=== PATIENT | female | born 1935 | race Caucasian/White ===

== ENCOUNTER → 2018-04-25 14:48 | Outpatient (CLI) | payer MEDICARE, SELFPAY ==
--- NOTE | 2018-04-25 14:55 | BI_ITS ---
MAMMOGRAPHY - BILATERAL SCREENING 3-D BEAL SYNTHESIS REASON FOR EXAM: Female, 83 years old. Bilateral Screening 3-D tomosynthesis PERTINENT HISTORY: No significant family history. TECHNIQUE: 2-D mammograms and 3-D Bela synthesis of the breast (s) were performed. CAD was performed. COMPARISON: 03/19/2017 FINDINGS: The breast composition is heterogeneously dense that can obscure small breast masses. 2 stereotactic marker is again noted in the left breast. Scattered benign calcifications are seen. No dense spiculated masses or suspicious microcalcifications are identified. No architectural distortion is identified. There is no skin thickening or retraction. There has been no significant change since the prior study. BI/SCREENING MAMM (CAD), BILAT IMPRESSION: No mammographic signs of malignancy. Routine yearly mammograms recommended. ASSESSMENT CATEGORY: BIRADS Category 2: Benign. A letter regarding these results will be sent to the patient by the facility within 30 days. FOLLOW UP RECOMMENDATION: Yearly follow up mammogram recommended. (A) Approximately 10% of breast cancers are not detected by mammography. A normal mammogram should not delay biopsy of a clinically suspicious abnormality. Electronically Signed: Steve Layne MD at 21:30 EDT , Service support ,
== END ==
PROVIDERS: Family Provider Internal Medicine; PCP Internal Medicine; Visit Provider Internal Medicine
DX: Z12.31 Encounter for screening mammogram for malignant neoplasm of breast (principal)
CPT/HCPCS: 77063; 77067

== ENCOUNTER → 2020-12-26 06:57 | Outpatient (CLI) | payer MEDICARE, SELFPAY ==
--- NOTE | 2020-12-26 07:35 | MRI_ITS ---
ACR Level 3 findings have been noted. An addendum which confirms receipt of the report will follow. STUDY: MRI THORACIC SPINE WITHOUT CONTRAST REASON FOR EXAM: Female, 85 years old. COMPRESSION FX T10 TECHNIQUE: Standardized fat and water weighted pulse sequences were obtained in the sagittal and axial planes. COMPARISON: X-ray dated 12/15/2020. FINDINGS: There is an increased kyphosis of the thoracic spine. There is no substantial scoliosis. T1-2, T2-3, T3-4, T4-5, T5-6, T6-7, T7-8, T8-9, T9-10, T10-11, T11-12: There are multilevel disc space narrowing and endplates spondylosis without demonstrated central canal or foraminal stenosis. Again noted is the severe (greater than 50%) compression fracture at T10 with edema, consistent with acute fracture. There is no retropulsion. Finding is grossly stable in comparison with the prior x-ray. There is edema involving the posterior interspinous ligaments of T9/T10 and T10/T11. Normal visualized thoracic cord. MRI/Spine Thoracic (Routine) IMPRESSION: Acute severe compression fracture at T10. No retropulsion. T9-T11 posterior interspinous ligamentous injury. Category 3 Electronically Signed: Hossein Maher MD at 10:40 EDT Tel , Service support ,
== END ==
PROVIDERS: PCP Internal Medicine; Referring Provider Internal Medicine; Visit Provider Internal Medicine
DX: S22.070A Wedge compression fracture of T9-T10 vertebra, initial encounter for closed fracture (principal)
CPT/HCPCS: 72146

== ENCOUNTER → 2021-01-12 13:45 | Outpatient (CLI) | payer MEDICARE, SELFPAY ==
--- NOTE | 2021-01-12 14:01 | BD_ITS ---
STUDY: DUAL ENERGY X-RAY ABSORPTIOMETRY / DXA REASON FOR EXAM: Female, 86 years old. Z78.0 -- POST TIFFANY. TECHNIQUE: Bone Mineral Density (BMD) measurements of lumbar spine and bilateral hips were obtained. COMPARISON: Comparison is made with prior examination dated 03/19/2017. FINDINGS: Lumbar Spine (L1-L4): g/cm2 (1.127) / T-score (-0.4) / Z-score (1.5) Findings are suggestive of normal bone density with a low fracture risk. Increased kyphosis. Loss of height of a lower dorsal vertebrae. Left Femur Total: g/cm2 (0.900) / T-score (-0.9) / Z-score (1.4) Left Femoral Neck: g/cm2 (0.847) / T-score (-1.4) / Z-score (1.0) Right Femur Total: g/cm2 (0.878) / T-score (-1.0) / Z-score (1.2) Right Femoral Neck: g/cm2 (0.886) / T-score (-1.1) / Z-score (1.2) The T-Scores on the most recent prior examination were: Lumbar Spine (L1-L4): There has been no change of bone density since the previous examination. Left Femur Total: which represents a worsening of 2.6%. Right Femur Total: which represents a worsening of 6.5%. BD/Dexa Bone Density Study IMPRESSION: The patient is considered osteopenic as outlined below according to [employer] (WHO) criteria with a low fracture risk. There has been worsening of bone density since the previous examination. Reference Information: The T-score is the number of standard deviations above or below the standard which is normal for young adults at their peak bone mineral density. The World Health Organization (WHO) interprets the T-scores as follows: Above -1 Normal bone density Between -1 and -2.5 Osteopenia Equal to / or below -2.5 Osteoporosis As a practical clinical guideline, osteopenia may be graded as follows: Mild -1 through -1.5 Moderate -1.6 through -2.0 Severe -2.1 through -2.4 The Z-score is the number of standard deviations above or below age-matched controls. A Z-score of less than -1.5 would be considered abnormal. References: 1. NIH Osteoporosis and Related Bone Diseases www osteo.org 2. International Society for Clinical Densitometry www iscd.org 3. National Osteoporosis Foundation www nof.org Electronically Signed: Sly Deal MD at 14:55 EDT , Service support ,
== END ==
PROVIDERS: PCP Internal Medicine; Referring Provider Internal Medicine; Visit Provider Internal Medicine
DX: Z78.0 Asymptomatic menopausal state (principal)
CPT/HCPCS: 77080